=== PATIENT | female | born 1985 | race Caucasian/White ===

== ENCOUNTER 2017-10-29 18:09 | Emergency (ER) | payer OTHER ==
--- NOTE | 2017-10-29 18:40 | ED Physician Documentation ---
General Adult - HISTORIAN Historian: patient - HPI Stated Complaint: Incr. swelling Lt leg/pain to Medial Lt thigh/dizziness Chief Complaint: General Adult Additional Information: Patient states that she has started to have some discomfort to the left medial thigh area. No precipitating factor noted. Feels that she has some swelling to the left leg. Has not had blood clots in the past but is worried that she might have some now. No family history of hypercoaguability noted. No chest pain/ pressure or shortness of breath. Patient has had tube tied, not on control pills. Is a smoker and is over weight. Patient denies any chest pain or SOB. Timing: still present Modifying Factors: none Context: no precipitating factor noted. - ROS CONST: no problems. denies: fever, chills CVS/RESP: none GI/: none - PAST HX Past History: other (anxiety) Other History: none Surgeries/Procedures: BTL, cholecystectomy, other (umbilical hernia repair) Allergies/Adverse Reactions: Allergies Allergy/AdvReac Type Severity Reaction Status Date / Time No Known Allergies Allergy Verified 10/29/17 18:28 Home Medications: Ambulatory Orders Medication Instructions Recorded Clonazepam [Klonopin] 1 mg PO PRN PRN 10/29/17 - SOCIAL HX Smoking History: greater than 1 pack/day Alcohol Use: rarely Drug Use: none - FAMILY HX Family History: No - VITAL SIGNS Vital Signs: Vital Signs Temp Pulse Resp BP Pulse Ox 98.3 F 118 H 18 138/95 97 10/29/17 18:10 10/29/17 18:10 10/29/17 18:10 10/29/17 18:10 10/29/17 18:10 - REVIEWED ASSESSMENTS Nursing Assessment Reviewed: Yes Vitals Reviewed: Yes General Adult Physical Exam - PHYSICAL EXAM GENERAL APPEARANCE: no distress CVS: reg rate & rhythm, heart sounds normal, equal pulses, no murmur, no gallop ABDOMEN: soft, no organomegaly, normal bowel sounds, no abdominal bruit, no distension SKIN: warm/dry, normal color. No: cyanosis EXTREMITIES: non-tender, normal range of motion, no evidence of injury, edema ( trace bilat, no calf tenderness noted. ), tenderness (mild tenderness to the lataral thigh area, no cords palpated, no tenderness to posterior calf area), other (calf circumference equal in both lower extremities.) NEURO: oriented X3, CN's nml as tested, motor nml, sensation nml, mood/affect nml Discharge Clincal Impression: Left thigh pain Referrals: Primary Doctor,No [Primary Care Provider] - 2 Days Additional Instructions: Try to keep leg elevated, wear some support stockings, watch salt intake. NSAID OTC Condition: Stable Disposition: 01 HOME, SELF-CARE Decision to Admit: NO Date of Decison to Admit: 11/28/17 Decision Time: 19:12
[2017-10-29 19:26] VITALS: BP 135/92
== END 2017-10-29 19:25 | disposition home or self-care (01) ==
LOC: ED 18:09
DX: M79.652 Pain in left thigh (principal); M79.89 Other specified soft tissue disorders
CPT/HCPCS: 99283

== ENCOUNTER 2019-04-27 10:08 | Outpatient (CLI) | payer OTHER ==
--- NOTE | 2019-04-27 12:25 | Diagnostic Imaging Report ---
HINA KEATING [facility] [id number] [facility] [address] [place], [place]. [address] Report Submission Date: Apr 27, 2019 10:58:17 AM CDT Patient Study Name: TEQUILA MONTOYA Date: Apr 27, 2019 10:10:24 AM CDT Modality Type: DX Gender: F Description: L SPINE 4 VIEWS : 83 Institution: [facility] Physician: HINA KEATING Exam: Lumbar spine. History: Low back pain. AP, lateral, both oblique views and L5-S1 spot view of the lumbar spine are submitted. Five functional lumbar vertebrae are identified. The vertebral body heights and intervertebral disc spaces are adequately maintained. No spondylolisthesis is identified. Impression: No bony abnormality. Electronically signed on Apr 27, 2019 10:58:17 AM CDT by: Jabari KAN
== END 2019-04-27 10:11 ==
LOC: RAD 10:08
PROVIDERS: ATTEND Family Medicine
DX: G89.29 Other chronic pain (principal); M54.5 Low back pain
CPT/HCPCS: 72110